=== PATIENT | female | born 1980 | race Caucasian/White ===

== ENCOUNTER 2017-03-28 09:29 | Emergency (ER) | payer BC, OTHER ==
[~2017-03-28] VITALS: Ht 175.3 cm; Wt 86.2 kg
[~2017-03-28 09:29] MED LIST: AMBIEN 5 MG TABL5 MG PO; BUTALB-ACETAMI1 EACH PO; CELEXA 10 MG TA10 M1 PO; MACROBID 100 M100 M1 PO; METOPROLOL; NOHOMEMEDICATIONS; NORCO 5-325 TA1 EACH PO; PHENERGAN 25 MG25 M1 PO; PHENERGAN25 MG RECTAL; PRENATAL; RANITIDINE 150150 M1; RANITIDINE 150150 MG PO; VALERIAN ROOT100 MG PO; VERAPAMIL ER240 M1; ZOFRAN ODT4 MG PO
[2017-03-28 10:58] VITALS: BP 106/65
== END 2017-03-28 10:45 | disposition home or self-care (01) ==
LOC: ER 09:29
DX: R51 Headache (principal); I95.9 Hypotension, unspecified; F10.99 Alcohol use, unspecified with unspecified alcohol-induced disorder; Z88.0 Allergy status to penicillin; Z88.1 Allergy status to other antibiotic agents

== ENCOUNTER 2017-10-03 17:13 | Emergency (ER) | payer BC, OTHER ==
[~2017-10-03] VITALS: Ht 175.3 cm; Wt 90.7 kg
[2017-10-03 18:15] LABS: ABSOLUTE NEUTROPHILS 3.6 thou/uL (1.4-8.2); BASOPHILS 0.9 % (0.0-2.0); EOSINOPHILS 1.8 % (0.0-3.0); HEMATOCRIT 38.6 % (37.0-47.0); HEMOGLOBIN 13.1 gm/dL (12.0-15.0); LYMPHOCYTES 38.5 % (24.0-44.0); MCH 31.4 pg (26.0-34.0); MCV 92.5 fL (80.0-100.0); PLATELET COUNT 246 thou/uL (150-400); POLYS 51.8 % (36.0-66.0); RBC 4.17 mil/uL (4.20-5.00); RDW 12.9 % (10.5-14.5)
[2017-10-03 18:23] LABS: CALCIUM 8.9 mg/dL (8.5-10.1); CREATININE 0.7 mg/dL (0.6-1.0); POTASSIUM 4.1 mmol/L (3.5-5.1)
[2017-10-03 18:28] LABS: ALBUMIN 3.4 g/dL (3.4-5.0); TOTAL BILIRUBIN 0.2 mg/dL (<0.1-1.0)
[2017-10-03 19:10] VITALS: BP 118/72
== END 2017-10-03 19:10 | disposition home or self-care (01) ==
LOC: ER 17:13
PROVIDERS: Nurse Practitioner Family
DX: N93.8 Other specified abnormal uterine and vaginal bleeding (principal); G43.909 Migraine, unspecified, not intractable, without status migrainosus; F17.210 Nicotine dependence, cigarettes, uncomplicated; Z88.1 Allergy status to other antibiotic agents; Z88.0 Allergy status to penicillin

== ENCOUNTER → 2017-10-08 | Outpatient (CLI) | payer BC, OTHER | LOC: ULTRA 14:38 | DX: R10.2 Pelvic and perineal pain (principal) ==

== ENCOUNTER 2018-09-12 12:28 | Emergency (ER) | payer BC, OTHER ==
[~2018-09-12] VITALS: Ht 175.3 cm; Wt 92.5 kg
[~2018-09-12 12:28] MED LIST changes: +CIPRO500 MG PO
[2018-09-12 12:38] LABS: URINE BILIRUBIN NEGATIVE (Negative); URINE BLOOD TRACE (Negative); URINE CLARITY CLEAR; URINE COLOR YELLOW; URINE GLUCOSE-RANDOM* NEGATIVE (Negative); URINE KETONES NEGATIVE (Negative); URINE LEUKOCYTES-REFLEX NEGATIVE (Negative); URINE NITRITE-REFLEX NEGATIVE (Negative); URINE PROTEIN (DIPSTICK) NEGATIVE (Negative); URINE SPECIFIC GRAVITY 1.025 (1.005-1.035); URINE UROBILINOGEN 0.2 E.U./dl (0.2-1.0)
[2018-09-12 12:58] LABS: ABSOLUTE NEUTROPHILS 4.5 thou/uL (1.4-8.2); BASOPHILS 0.6 % (0.0-2.0); EOSINOPHILS 0.7 % (0.0-3.0); HEMATOCRIT 39.3 % (37.0-47.0); HEMOGLOBIN 13.7 gm/dL (12.0-15.0); LYMPHOCYTES 30.4 % (24.0-44.0); MCH 32.2 pg (26.0-34.0); MCHC 34.8 g/dL (28.0-37.0); MCV 92.7 fL (80.0-100.0); MONOCYTES 6.3 % (1.0-8.0); PLATELET COUNT 241 thou/uL (150-400); RBC 4.24 mil/uL (4.20-5.00); WBC 7.2 thou/uL (4.0-11.0)
[2018-09-12 13:08] LABS: CALCIUM 8.6 mg/dL (8.5-10.1); CREATININE 0.9 mg/dL (0.6-1.0); POTASSIUM 3.7 mmol/L (3.5-5.1)
[2018-09-12 13:15] LABS: ALBUMIN 3.9 g/dL (3.4-5.0); TOTAL BILIRUBIN 0.3 mg/dL (<0.1-1.0); TOTAL PROTEIN 7.8 g/dL (6.4-8.2)
[2018-09-12] MEDS ORDERED: ALLEGRA ALLERGY60 MG PO (14:18)
[2018-09-12] MEDS ORDERED: LARISSIA-28 TA1 EACH PO (14:18)
[2018-09-12] MEDS ORDERED: VITAMIN B-12500 MCG PO (14:19)
[2018-09-12] MEDS ORDERED: KETOROLAC TROME10 MG PO (14:19)
[2018-09-12] MEDS ORDERED: ZANTAC 150MG T150 MG PO (14:19)
[2018-09-12] MEDS ORDERED: HYDROCODONE-AP1 EAC6 PO (16:13)
[2018-09-12] MEDS ORDERED: TORADOL 10 MG T10 MG PO (16:13)
[2018-09-12] MEDS ORDERED: ONDANSETRON HCL4 M2 PO (16:13)
[2018-09-12 16:36] VITALS: BP 125/79
== END 2018-09-12 16:37 | disposition home or self-care (01) ==
LOC: ER 12:28
PROVIDERS: Physician Assistant
DX: N20.1 Calculus of ureter (principal); G43.909 Migraine, unspecified, not intractable, without status migrainosus; R11.2 Nausea with vomiting, unspecified; F17.210 Nicotine dependence, cigarettes, uncomplicated; Z88.0 Allergy status to penicillin; Z88.1 Allergy status to other antibiotic agents; Z88.8 Allergy status to other drugs, medicaments and biological substances

== ENCOUNTER → 2018-10-02 | Outpatient (CLI) | payer BC, OTHER ==
[~2018-10-02] MED LIST changes: +ALLEGRA ALLERGY60 MG PO; +HYDROCODONE-AP1 EAC6 PO; +KETOROLAC TROME10 MG PO; +LARISSIA-28 TA1 EACH PO; +ONDANSETRON HCL4 M2 PO; +TORADOL 10 MG T10 MG PO; +VITAMIN B-12500 MCG PO; +ZANTAC 150MG T150 MG PO
== END ==
LOC: CAT 11:11
DX: N20.0 Calculus of kidney (principal)

== ENCOUNTER → 2020-03-08 | Outpatient (CLI) | payer OTHER | LOC: SJCVCIMAG 06:22 | PROVIDERS: ATTEND Internal Medicine | DX: R55 Syncope and collapse (principal) ==